=== PATIENT | male | born 1940 | race Caucasian/White ===

== ENCOUNTER 2024-02-04 18:29 | Emergency (ER) | payer MEDICARE, OTHER ==
[~2024-02-04] VITALS: Ht 172.7 cm; Wt 93.0 kg
== END 2024-02-04 20:05 | disposition home or self-care (01) ==
LOC: ER 18:29
DX: S82.831A Other fracture of upper and lower end of right fibula, initial encounter for closed fracture (principal); W19.XXXA Unspecified fall, initial encounter
CPT/HCPCS: 73610; 73630

== ENCOUNTER 2025-06-16 09:38 | Day surgery (SDC) | payer OTHER ==
[~2025-06-16] VITALS: Ht 172.7 cm; Wt 99.4 kg
[~2025-06-16 09:38] MED LIST: ALLO100 PO; AMLODIPINE BESYL5 MG PO; ATOR40TA PO; B-12500 MC2 PO; BUME2 PO; ELIQUIS5 M2 PO; HYDROCODONE-AC1 EA10 PO; LEVSOD25 PO; OMEP20ER PO; PLAVIX75 MG PO; Vitamin D1000 UNI1 PO
[2025-06-16] MEDS ORDERED: CeFAZolin Sodium 2,000 MG VIAL ONE (10:01)
[2025-06-16] MEDS ORDERED: FentaNYL Citrate 50 MCG/ML 2 ML Injection ONE (10:31)
[2025-06-16] MEDS ORDERED: Midazolam HCl 1MG / ML 2ML Vial ONE (10:31)
[2025-06-16] MEDS ORDERED: LOSA25 PO (10:42)
[2025-06-16] MEDS ORDERED: AMLO5 PO (10:43)
[2025-06-16] MEDS ORDERED: NIZORAL A-D125 ML TOP (10:44)
[2025-06-16] MEDS ORDERED: BUDESONIDE1 MG/2 M1 PO (10:45)
[2025-06-16] MEDS ORDERED: Lidocaine 2% Jelly Uro-Jet ONE (10:45)
[2025-06-16] MEDS ORDERED: POTCHL20ER PO (10:48)
[2025-06-16] MEDS ORDERED: CLOP75 PO (10:49)
[2025-06-16] MEDS ORDERED: DIPH25 (10:51)
[2025-06-16] MEDS ORDERED: NS 1,000 ML IV ONE (11:00)
--- NOTE | 2025-06-16 11:42 | NUR ---
06/16/25 1142 Chitra Ignacio ISOVUE 300 MIXED 1:1 ON THE FIELD WITH NACL FOR RETROGRADE PYELOGRAM
--- NOTE | 2025-06-16 12:59 | NUR ---
06/16/25 1259 Skinny Dhaliwal PT VOIDED MODERATE AMOUT REDDISH URINE PRIOR TO D/C.
== END 2025-06-16 13:55 | disposition home or self-care (01) ==
LOC: ORSCSDS 09:38
PROVIDERS: Urology
PROC: 0THD8YZ Insertion of Other Device into Urethra, Via Natural or Artificial Opening Endoscopic (ICD-10-PCS; principal; 2025-06-16 11:00)
DX: N13.30 Unspecified hydronephrosis (principal); Z85.46 Personal history of malignant neoplasm of prostate; I12.9 Hypertensive chronic kidney disease with stage 1 through stage 4 chronic kidney disease, or unspecified chronic kidney disease; N18.4 Chronic kidney disease, stage 4 (severe); E03.9 Hypothyroidism, unspecified; E78.5 Hyperlipidemia, unspecified; K21.9 Gastro-esophageal reflux disease without esophagitis; Z86.73 Personal history of transient ischemic attack (TIA), and cerebral infarction without residual deficits; Z86.718 Personal history of other venous thrombosis and embolism; Z79.01 Long term (current) use of anticoagulants; Z79.02 Long term (current) use of antithrombotics/antiplatelets; Z79.899 Other long term (current) drug therapy
CPT/HCPCS: C1758; C1769; C2617; J0690; J2250; J2704; J3010